=== PATIENT | female | born 1955 | race Caucasian/White ===

== ENCOUNTER 2022-09-03 08:51 | Outpatient (REF) | payer MEDICARE, BC, SELFPAY ==
[2022-09-03 09:19] LABS: MANUAL DIFF FLAG NO
[2022-09-03 09:46] LABS: Appearance Urine Cloudy; Color Urine Yellow; Glucose Urine UA Negative (Negative); Leukocyte Esterase Urine Moderate (2+) (Negative); Nitrite Urine Negative (Negative); UMIC TRIGGER UACC YES; Urine Blood Negative (Negative); Urine Ketones Negative (Negative); Urine Protein Negative (Neg-Trace)
[2022-09-03 09:47] LABS: Basophils Absolute Auto 0.1 X10*3/uL (0.0-0.2); Basophils Percent Auto 0.8 % (0-2); Eosinophils Absolute Auto 0.2 X10*3/uL (0.0-0.4); Eosinophils Percent Auto 2.8 % (0-4); Hematocrit 47.2 % (37.0-47.0); Hemoglobin 15.1 g/dl (12.0-16.0); Imm Gran Abs Auto 0.02 X10*3/uL (0.00-0.03); Imm Gran Pct Auto 0.2 % (0.0-0.4); Lymphocytes Absolute Auto 2.8 X10*3/uL (1.2-4.9); Lymphocytes Percent Auto 32.8 % (20-40); Mean Corpuscular Hemoglobin 27.1 pg (27.0-33.0); Mean Corpuscular Volume 84.7 fL (80.0-98.0); Mean Platelet Volume 11.9 fL (9.4-12.3); Monocytes Absolute Auto 0.6 X10*3/uL (0.1-1.2); Monocytes Percent Auto 6.5 % (2-11); Neutrophils Absolute Auto 4.9 x10*3/uL (2.0-8.3); Neutrophils Percent Auto 56.9 % (45-73); Platelet Count 233 X10*3/uL (160-400); Red Blood Count 5.57 X10*6/uL (4.20-5.50); Red Cell Distribution Width 14.1 % (11.0-16.0); White Blood Count 8.7 X10*3/uL (4.8-10.8)
[2022-09-03 09:51] LABS: Bacteria Urine None Seen (None Seen); Hyaline Casts Urine 0-2 /LPF (0-2); RBC Urine 0-2 /HPF (0-2); UACC Culture Trigger YES
[2022-09-03 10:08] LABS: Alanine Aminotransferase 25 U/L (0-31); Albumin Level 4.5 g/dL (3.5-5.0); Alkaline Phosphatase 105 U/L (39-117); Anion Gap 17 (12-20); Aspartate Amino Transferase 15 U/L (5-31); Bilirubin Total 0.5 mg/dL (0.0-1.0); Blood Urea Nitrogen 16 mg/dL (9-16); Calcium 9.6 mg/dL (8.4-10.2); Carbon Dioxide 26 mmol/L (22-29); Chloride 101 mmol/L (96-108); Estimated Glomerular Filt Rate > 60; Glucose Fasting 117 mg/dL (60-99); Potassium 4.7 mmol/L (3.3-5.1); Sodium 139 mmol/L (135-145); Total Protein 7.6 g/dL (6.5-8.0)
== END 2022-09-03 08:52 | disposition home or self-care (01) ==
LOC: HO.LAB 08:51
PROVIDERS: PCP Internal Medicine; Visit Provider Internal Medicine
DX: R10.9 Unspecified abdominal pain (principal)
CPT/HCPCS: 36415; 80053; 81001; 85025; 87086

== ENCOUNTER 2024-06-05 11:02 | Outpatient (AMB) | payer MEDICARE, BC, SELFPAY ==
[2024-06-05 11:13] VITALS: BP 168/100; PULSE 74; TEMP 36.9; O2SAT 97; BMI 33.7
--- NOTE | 2024-06-05 11:13 | MHC.OFFWIV ---
Intake Vital Signs 06/05/24 11:13 06/05/24 11:32 Height 4 ft 11 in Weight 167 lb BMI 33.7 BP 168/100 H 148/96 H Blood Pressure Location Rt brachial Lt brachial Position Sitting Sitting Pulse 74 Pulse Source Pulse Oximeter Temp 98.5 F Temp Source Oral Pulse Oximetry (%) 97 Oxygen Delivery Method Room Air Intake Visit Reasons: Rash/Infection on RT Leg Intake Note: pt c/o Rash on RT leg. ? infection Patient Tobacco Use Status: Current everyday Tobacco user Allergies No Known Allergies Allergy (Verified 06/05/24 11:13) Do you need a note to return to daycare/school/sports/work: No HPI HPI Comments History of Present Illness Details This is a 68-year-old female who presents to the walk-in clinic complaining of rash on her right leg. Patient states she believes she was bitten by some sort of insect about 3 weeks ago. She states it was just a small area where the bite was there was some mild purplish discoloration. She states she has been utilizing Benadryl cream as well as topical antibiotic cream and cleaning the area with hydrogen peroxide. She states that the rash started to spread slightly and has been pruritic. She denies any fever/chills. She denies any arthralgias/myalgias. She otherwise feels well. Patient does report that she is outside quite often and has a woodsy backyard. 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 Cognitive needs: No Hearing needs: No Vision needs: Yes (glasses) Review of Systems Const All systems reviewed & are unremarkable except as noted in HPI and below Reports no additional complaints Eyes Reports no additional complaints ENT Reports no additional complaints Card Reports no additional complaints Resp Reports no additional complaints GI Reports no additional complaints Reports no additional complaints Musc Reports no additional complaints Skin/Breast Reports system reviewed and no additional complaints, except as documented Neuro Reports no additional complaints Psych Reports no additional complaints Endo Reports no additional complaints Rock/Lymph Reports no additional complaints Aller/Immun Reports no additional complaints Physical Exam Vital Signs: Last Vital Signs Temp 98.5 F 06/05/24 11:13 Pulse 74 06/05/24 11:13 BP 168/100 H 06/05/24 11:13 Pulse Ox 97 06/05/24 11:13 Oxygen Delivery Method Room Air 06/05/24 11:13 BMI result Body Mass Index 33.7 Const Other: Vital signs reviewed. Constitutional: Non-toxic appearing. No acute distress. Well-developed and well-nourished. HEENT: Normocephalic and atraumatic. Skin: There is a maculopapular rash to the anterior right dudley with a central scab. There is no surrounding erythema or cellulitic changes. There is no purulent drainage. There is no lymphangitic streaking. Neck: Full and painless range of motion. No cervical lymphadenopathy. Cardio: Regular rate. Pulmonary: No respiratory distress. No accessory muscle usage. Gastrointestinal: Soft, nontender, and nondistended in all 4 quadrants. Musculoskeletal: Normal range of motion in joints throughout the body. No deformity or other signs of injury. Neuro: Alert and oriented x4. Cranial nerves 2-12 grossly intact. No focal deficits appreciated. Psych: Normal mood and affect. Assessment & Plan Assessment & Plan (1) Contact dermatitis: Code(s): L25.9 - Unspecified contact dermatitis, unspecified cause Qualifiers: Contact dermatitis type: irritant Contact dermatitis trigger: unspecified trigger Qualified Code(s): L24.9 - Irritant contact dermatitis, unspecified cause Plan: 68-year-old female presented to the walk-in clinic complaining of a pruritic rash in the right anterior dudley swelling and possible insect bite. History and physical appears most consistent with an irritant contact dermatitis, no evidence of cellulitis or abscess or erythema migraines. Patient sent home with triamcinolone cream twice daily. She was advised to continue with oral antihistamines, which will help with the itching. She was advised to follow-up here or proceed to the emergency room if she were to develop persistent/worsening symptoms, fever/chills, or purulent drainage. Patient verbalized understanding is in agreement with the plan. Medications: New triamcinolone acetonide 0.5% 1 appl topical BID 15 grams 0RF Coding Level of Care Code Est Pt Level 3 (23595) Diagnoses Irritant contact dermatitis, unspecified trigger L24.9 Contact dermatitis type: irritant Contact dermatitis trigger: unspecified trigger
[2024-06-05 11:32] VITALS: BP 148/96
== END 2024-06-05 12:13 | disposition home or self-care (01) ==
PROVIDERS: PCP Internal Medicine; Visit Provider Physician Assistant Medical
DX: L24.9 Irritant contact dermatitis, unspecified cause (principal)
CPT/HCPCS: 99213

== ENCOUNTER 2024-07-24 12:52 | Outpatient (AMB) | payer MEDICARE, BC, SELFPAY ==
--- NOTE | 2024-07-24 12:55 | MHC.OFFWIV ---
Intake Vital Signs 07/24/24 12:57 Height 4 ft 11 in Weight 169 lb BMI 34.1 BP 138/80 Blood Pressure Location Lt brachial Position Sitting Pulse 106 H Pulse Source Pulse Oximeter Pulse Oximetry (%) 96 Oxygen Delivery Method Room Air Intake Visit Reasons: EP Rash on leg Intake Note: Patient here for rash on right leg, she was prescribed an ointment which helped clear it up but ran out of cream. Patient Tobacco Use Status: Current everyday Tobacco user Allergies No Known Allergies Allergy (Verified 07/24/24 12:58) Do you need a note to return to daycare/school/sports/work: No HPI HPI Comments History of Present Illness Details This is a 68-year-old female who presented to the walk-in clinic complaining of a persistent rash to her right lower extremity. She was evaluated at the walk-in clinic on 06/05/2024 and she was diagnosed with contact/irritant dermatitis and given triamcinolone cream. Patient states it was topical steroid cream was working very well in the rash significantly improved to an extremely small area; however, she ran out of the cream and the rash started to spread again. She states that she has been rubbing the area with hydrogen peroxide. Patient otherwise is feeling well without active complaints. 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 Cognitive needs: No Hearing needs: No Vision needs: Yes (glasses) Review of Systems Const All systems reviewed & are unremarkable except as noted in HPI and below Reports no additional complaints Eyes Reports no additional complaints ENT Reports no additional complaints Card Reports no additional complaints Resp Reports no additional complaints GI Reports no additional complaints Reports no additional complaints Musc Reports no additional complaints Skin/Breast Reports system reviewed and no additional complaints, except as documented Neuro Reports no additional complaints Psych Reports no additional complaints Endo Reports no additional complaints Rock/Lymph Reports no additional complaints Aller/Immun Reports no additional complaints Physical Exam Vital Signs: Last Vital Signs Pulse 106 H 07/24/24 12:57 BP 138/80 07/24/24 12:57 Pulse Ox 96 07/24/24 12:57 Oxygen Delivery Method Room Air 07/24/24 12:57 BMI result Body Mass Index 34.1 Const Other: Vital signs reviewed. Constitutional: Non-toxic appearing. No acute distress. Well-developed and well-nourished. HEENT: Normocephalic and atraumatic. Tympanic membranes without erythema, edema, or bulging bilaterally. External auditory canals without erythema or edema bilaterally. Moist mucous membranes. No pharyngeal erythema or exudates. Skin: Warm and dry. There is a maculopapular rash to the anterior right dudley, which is significantly improved from 06/05/2024. There is no surrounding erythema or cellulitic changes. There is no purulent drainage. There is no lymphangitic streaking. Neck: Full and painless range of motion. No cervical lymphadenopathy. Cardio: Regular rate. No lower extremity edema. No JVD. Pulmonary: No respiratory distress. No accessory muscle usage. Musculoskeletal: Normal range of motion in joints throughout the body. No deformity or other signs of injury. Neuro: Alert and oriented x4. Cranial nerves 2-12 grossly intact. No focal deficits appreciated. Psych: Normal mood and affect. Assessment & Plan Assessment & Plan (1) Contact dermatitis: Code(s): L25.9 - Unspecified contact dermatitis, unspecified cause Qualifiers: Contact dermatitis type: irritant Contact dermatitis trigger: unspecified trigger Qualified Code(s): L24.9 - Irritant contact dermatitis, unspecified cause Plan: This is a 68-year-old female who presented to the walk-in clinic complaining of a persistent rash to the right lower extremity. The rash has almost completely resolved; however, she ran out of her steroid cream and started rubbing the area with hydrogen peroxide in the rash started to spread again. Patient is requesting a refill of the triamcinolone cream, which was provided to her. I also recommended she avoid rubbing the area as this is quite abrasive and can irritate the area further. Patient extremely appreciative of the help. Medications: Refilled triamcinolone acetonide 0.5% 1 appl topical BID 30 grams 0RF Coding Level of Care Code Est Pt Level 3 (17939) Diagnoses Irritant contact dermatitis, unspecified trigger L24.9 Contact dermatitis type: irritant Contact dermatitis trigger: unspecified trigger
[2024-07-24 12:57] VITALS: BP 138/80; PULSE 106; O2SAT 96; BMI 34.1
== END 2024-07-24 13:42 | disposition home or self-care (01) ==
PROVIDERS: PCP Internal Medicine; Visit Provider Physician Assistant Medical
DX: L24.9 Irritant contact dermatitis, unspecified cause (principal)

== ENCOUNTER → 2024-07-24 12:52 | Outpatient (BNVA) | payer MEDICARE, BC, SELFPAY | PROVIDERS: PCP Internal Medicine | DX: L24.9 Irritant contact dermatitis, unspecified cause (principal) | CPT/HCPCS: 99212 ==

== ENCOUNTER 2024-09-29 13:21 | Outpatient (AMB) | payer MEDICARE, BC, SELFPAY ==
[2024-09-29 13:26] VITALS: BP 182/102; PULSE 92; O2SAT 96; BMI 32.6
--- NOTE | 2024-09-29 13:26 | A.OFFPC_ITS ---
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 Accompanied by: Self / Same As Patient Allergies No Known Allergies Allergy (Verified 09/29/24 14:30) Medication List - Last Reconciled 09/29/24 by Agapito Huffman MD lisinopril 10 mg PO DAILY meloxicam 15 mg PO DAILY triamcinolone acetonide 0.5% 1 appl topical BID Tobacco use date assessed: 09/29/24 Fall risk assessment: No Falls in past year Last assessed Fall Risk: 09/29/24 Dental Screening Dental Screen Date: 09/29/24 Did you have a dental visit in the last 12 months?: Yes Did you have a dental problem in the last 6 months where you did not have access to dental care?: No Was dental information given to patient?: Patient has dentist HPI Stomach and back pain HPI Details 69-year-old female presents to the offic e to discuss her acute stomach and back pain. Symptoms present for the past 2 weeks. Mostly on the right upper quadrant and lower back. Does not recall any fall or injury. No relation to walking or exercise. No relation to food. Patient reports no change in bowel habits. Patient does not come to a physician unless needed. She has not been doing any of her screening test that have been ordered. Continues to work and is able to do her activities of daily living. 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 1. Little interest or pleasure in doing things: not at all 2. Feeling down, depressed, or hopeless: not at all 3. Trouble falling or staying asleep, or sleeping too much: not at all 4. Feeling tired or having little energy: not at all 5. Poor appetite or overeating: not at all 6. Feeling bad about yourself - or that you are a failure or have let yourself or your family down: not at all 7. Trouble concentrating on things, such as reading the newspaper or watching television: not at all 8. Moving or speaking so slowly that other people could have noticed. Or the opposite - being so fidgety or restless that you have been moving around a lot more than usual: not at all 9. Thoughts that you would be better off or of hurting yourself in some way: not at all Total score: 0 Depression Screening Interpretation: Negative Depression Screening Done: Yes 10328 - PHQ-9 Billing: Yes Source: Developed by Drs. Bernardo Waller, Bee Martinez, Mark Boyle and colleagues, with an educational varghese from [employer]. Thrive Questionnaire Date Thrive assessed: 09/29/24 I am a: Patient What is your living situation today?: I have a steady place to live Within the past 12 months, did the food you bought not last and you didn't have the money to get more?: Never true Within the past 12 months, did you worry whether your food would run out before you got money to buy more?: Never true Do you have trouble paying for medicines?: No Do you have trouble getting transportation to medical appointments?: No Do you have trouble paying your heating and electricity bill?: No Do you have trouble taking care of your child, family member or friend?: No Do you have trouble with day-to-day activities such as bathing, preparing meals, shopping, managing finances, etc.?: No Are you currently unemployed and looking for a job?: No Are you interested in more education?: No Please select the resources that you would like help with: None Currently or been in a relationship where the following occur: No concerns reported THRIVE Score: 0 AUDIT C Alcohol Use Questionnaire (AUDIT-C) 1. How often do you have a drink containing alcohol?: Never 3. How often do you have six or more drinks on one occasion?: Never Total Score: 0 YAJAIRA-7 AMB Questionnaire YAJAIRA-7 Date YAJAIRA - 7 assessed: 09/29/24 Feeling nervous, anxious, or on edge: 2 = More than half the days Not being able to stop or control worryin = Several days Worrying too much about different things: 2 = More than half the days Trouble relaxin = Not at all Being so restless that it is hard to sit still: 0 = Not at all Becoming easily annoyed or irritable: 0 = Not at all Feeling afraid as if something awful might happen: 1 = Several days Total YAJAIRA-7 score (0-4 normal; 5-9 mild; 10-14 moderate; 15-21 severe): 6 Source: Developed by Drs. Bernardo Waller, Bee Martinez, Mark Boyle and colleagues, with an educational varghese from [employer]. YAJAIRA-7 Assessment Billing YAJAIRA-7 Assessment Tool: YAJAIRA-7 Assessment 68454 Physical exam (Primary Care) Vital Signs: Last Vital Signs Pulse 92 09/29/24 13:26 BP 182/102 H 09/29/24 13:26 Pulse Ox 96 09/29/24 13:26 Oxygen Delivery Method Room Air 09/29/24 13:26 BMI result Body Mass Index 32.6 Tobacco/Smoking Status: Tobacco use Status Tobacco use date assessed 09/29/24 09/29/24 13:44 Patient Tobacco Use Status Current everyday Tobacco 09/29/24 13:26 Tobacco use type Cigarette 09/29/24 13:26 e-Cigarette/Vaping Use Never Used 09/29/24 13:26 PHQ-9: PHQ-9 Score PHQ-9: Total score 0 09/29/24 13:49 Depression Screening Interpretation: Negative Thrive Assessment: Date of Thrive Assessment Date Thrive assessed 09/29/24 09/29/24 13:44 Currently or been in a relationship where the following occur: No concerns reported Const General: cooperative and healthy appearing Nutritional Appearance: well nourished Orientation/consciousness: patient oriented x3 Limitations: no limitations HENMT Head: Yes normal to inspection Eyes General: appearance normal, both eyes and all related structures Neck Neck: Yes normal visual inspection Chest Chest palpation & inspection: normal palpation of entire chest wall Resp Effort & Inspection: normal respiratory effort Neuro General: patient oriented x3 Office Procedures Flu Questionnaire Does the patient have a severe egg allergy?: No Does the patient have severe life threatening allergies?: No Does the patient have a fever or illness today?: No Has the patient ever had Guillain-[place] Syndrome?: No Has the patient ever had any past reaction to a flu shot?: No Immunizations Fluarix Triv [id number] (PF) 45 mcg (15 mcg x 3)/0.5 mL IM syringe Performing Provider: Agapito Huffman MD [facility] Administered by: CORNELL Metcalf on 09/29/24 13:49 Dose Route Admin Location Dispensed Lot Number Expiration Date NDC Development Coordinator 0.5 mL IM Right Deltoid 0.5 mL [id number] 04/26/25 [id number] Room 21 Media VIS Given Date VIS Provided VIS Publication Date 09/29/24 Single Vaccine 21 Eligibility Eligibility Date Funding Source Not [facility] Eligible 09/29/24 Private Coding Level of Care Code Est Pt Level 4 (60436) Complex EM visit Add On G2211 Diagnoses Abdominal pain R10.9 Essential hypertension I10 Additional Codes YAJAIRA-7 Assessment Billing - YAJAIRA-7 Assessment Tool: YAJAIRA-7 Assessment 33647 ([id number]) PHQ-9 - 61615 - PHQ-9 Billing: Yes ([id number]) Assessment & Plan Assessment & Plan (1) Abdominal pain: Code(s): R10.9 - Unspecified abdominal pain Category: Medical Plan: Etiology of the pain is unclear. Blood work has been ordered stat. Physical exam is unremarkable. Anti-inflammatory has been started. Patient has a follow-up appointment for next week. (2) Essential hypertension: Code(s): I10 - Essential (primary) hypertension Category: Medical Plan: Patient has persistently elevated blood pressure. Lisinopril 10 mg per day has been ordered. Orders: Orders Complete Blood Count no Diff Today R10.9 - Unspecified abdominal pain Liver Panel Today R10.9 - Unspecified abdominal pain Thyroid Stimulating Hormone Today R10.9 - Unspecified abdominal pain Erythrocyte Sedimentation Rate Today R10.9 - Unspecified abdominal pain Influenza [id number] Immunization Today Z23 - Encounter for immunization Basic Metabolic Panel Today R10.9 - Unspecified abdominal pain Lipid Panel Today R10.9 - Unspecified abdominal pain UA and rflx microscopic Today R10.9 - Unspecified abdominal pain Medications: New lisinopril 10 mg PO DAILY 90 tabs 1RF meloxicam 15 mg PO DAILY 14 tabs 0RF
== END 2024-09-29 14:26 | disposition home or self-care (01) ==
PROVIDERS: PCP Internal Medicine; Visit Provider Internal Medicine
DX: R10.9 Unspecified abdominal pain (principal); I10 Essential (primary) hypertension; Z23 Encounter for immunization

== ENCOUNTER 2024-09-29 13:21 | Outpatient (REF) | payer MEDICARE, BC, SELFPAY ==
[2024-09-29 15:49] LABS: Hematocrit 46.8 % (37.0-47.0); Hemoglobin 15.5 g/dl (12.0-16.0); Mean Corpuscular HGB Conc 33.1 g/dl (31.0-35.0); Mean Corpuscular Hemoglobin 28.3 pg (27.0-33.0); Mean Corpuscular Volume 85.6 fL (80.0-98.0); Mean Platelet Volume 11.4 fL (9.4-12.3); Platelet Count 247 X10*3/uL (160-400); Red Blood Count 5.47 X10*6/uL (4.20-5.50); Red Cell Distribution Width 14.6 % (11.0-16.0)
[2024-09-29 16:26] LABS: Appearance Urine Clear; Color Urine Yellow; Glucose Urine UA Negative (Negative); Leukocyte Esterase Urine Negative (Negative); Nitrite Urine Negative (Negative); PH 6.5 (5.0-9.0); Urine Blood Negative (Negative); Urine Ketones Negative (Negative); Urine Protein Trace mg/dL (Neg-Trace)
[2024-09-29 17:22] LABS: Erythrocyte Sedimentation Rate 6 MM/HR (0-20)
[2024-09-29 18:12] LABS: Alanine Aminotransferase 29 U/L (0-31); Albumin Level 4.5 g/dL (3.5-5.0); Alkaline Phosphatase 84 U/L (39-117); Anion Gap 14 (12-20); Aspartate Amino Transferase 23 U/L (5-31); Bilirubin Direct 0.1 mg/dL (0.0-0.5); Bilirubin Total 0.5 mg/dL (0.0-1.0); Blood Urea Nitrogen 14 mg/dL (9-16); Calcium 9.8 mg/dL (8.4-10.2); Carbon Dioxide 28 mmol/L (22-29); Chloride 101 mmol/L (96-108); Cholesterol 208 mg/dL (<200); Estimated Glomerular Filt Rate > 60; Glucose Random 113 mg/dL (60-115); HDL Cholesterol 49 mg/dL (>40); LDL Cholesterol Calculated 121 mg/dL (<100); Potassium 3.8 mmol/L (3.3-5.1); Sodium 139 mmol/L (135-145); Total Protein 7.8 g/dL (6.5-8.0); Triglycerides 191 mg/dL (<150)
[2024-09-29 19:00] LABS: Thyroid Stimulating Hormone 1.79 uIU/mL (0.32-4.0)
== END 2024-09-29 13:22 | disposition home or self-care (01) ==
LOC: HO.LAB 13:21
PROVIDERS: PCP Internal Medicine; Visit Provider Internal Medicine
DX: R10.9 Unspecified abdominal pain (principal); I10 Essential (primary) hypertension; Z23 Encounter for immunization
CPT/HCPCS: 36415; 80048; 80061; 80076; 81003; 84443; 85027; 85652; 90471; 90656; 96127; 99212

== ENCOUNTER 2024-10-12 09:17 | Outpatient (AMB) | payer MEDICARE, BC, SELFPAY ==
[2024-10-12 09:46] VITALS: BP 128/78; PULSE 78; O2SAT 95; BMI 33.2
--- NOTE | 2024-10-12 09:46 | A.OFFPC_ITS ---
Vital Signs 10/12/24 09:46 Height 4 ft 11 in Weight 164 lb 4 oz BMI 33.2 BP 128/78 Blood Pressure Location Lt brachial Position Sitting Pulse 78 Pulse Source Pulse Oximeter Pulse Oximetry (%) 95 Oxygen Delivery Method Room Air Intake Visit Reasons: ONE WEEK F/U Intake Note: Patient is here to follow up on HTN. 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 Required: No Advertising Display Rotator: Not Required per policy Accompanied by: Self / Same As Patient Allergies No Known Allergies Allergy (Verified 10/12/24 09:46) Tobacco use date assessed: 10/12/24 Dental Screening Dental Screen Date: 09/29/24 [facility] Medical History (Updated 10/12/24 @ 10:21 by Agapito Huffman MD) Systolic murmur of aorta Essential hypertension Surgical History History of cholecystectomy History of partial hysterectomy Social History Housing: House Alcohol intake: never Patient Tobacco Use Status: Current everyday Tobacco user Tobacco use type: Cigarette Cigarettes Per Day: 7 e-Cigarette/Vaping Use: Never Used Second Hand Smoke Exposure: Yes service: No Current occupational status: employed 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 Bernardo Waller, Bee Martinez, Mark Boyle and colleagues, with an educational varghese from [employer]. Physical exam (Primary Care) Vital Signs: Last Vital Signs Pulse 78 10/12/24 09:46 BP 128/78 10/12/24 09:46 Pulse Ox 95 10/12/24 09:46 Oxygen Delivery Method Room Air 10/12/24 09:46 BMI result Body Mass Index 33.2 Tobacco/Smoking Status: Tobacco use Status Tobacco use date assessed 10/12/24 10/12/24 09:50 Patient Tobacco Use Status Current everyday Tobacco 10/12/24 09:50 Tobacco use type Cigarette 10/12/24 09:50 e-Cigarette/Vaping Use Never Used 10/12/24 09:50 Thrive Assessment: Date of Thrive Assessment Date Thrive assessed 09/29/24 10/12/24 09:50 Coding Level of Care Code Est Pt Level 4 (39759) Complex EM visit Add On G2211 Diagnoses Essential hypertension I10 Systolic murmur of aorta I35.8 Hypercholesterolemia E78.00 Abdominal pain R10.9 Assessment & Plan Assessment & Plan (1) Essential hypertension: Code(s): I10 - Essential (primary) hypertension Category: Medical Plan: BP is in range. Continue lisinopril at same dosage. (2) Systolic murmur of aorta: Code(s): I35.8 - Other nonrheumatic aortic valve disorders Category: Medical Plan: Most likely aortic stenosis. Patient does not want any workup at the movement. (3) Hypercholesterolemia: Code(s): E78.00 - Pure hypercholesterolemia, unspecified Category: Medical (4) Abdominal pain: Code(s): R10.9 - Unspecified abdominal pain Category: Medical Plan History of Present Illness The patient is a 69-year-old female presenting with concerns related to her ongoing hypertension management and episodes of abdominal pain. Previously, her blood pressure was elevated, and she commenced antihypertensive medication resulting in good control currently. She initially presented with unexplained abdominal pain on one side, which had led to blood work and a prescription of meloxicam, with the latter providing significant symptom relief. The abdominal pain has since resolved. The patient also reports a history of itchy rash described as small bumps that increase in itchiness upon scratching and appear to be exacerbated by stress. She has experienced improvement in symptoms using a non-prescribed topical treatment from her ?s supply, acknowledging it was not her prescription. 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 - Cardiovascular: Denies chest pain. Reports awareness of a heart murmur. - Gastrointestinal: Denies changes in bowel habits, reflux, or gastrointestinal discomfort at present. - General: Denies sleeping issues. Reports stress management challenges. Physical Exam General: Cooperative and healthy appearing Nutritional Appearance: Well nourished Orientation/consciousness: Patient oriented x3 Limitations: No limitations Head: Normal to inspection Heart: S1 S2. Soft ejection murmur best heard in the aortic area radiating into the carotids. General: Appearance normal, both eyes and all related structures Neck: Normal visual inspection Chest: Normal palpation of entire chest wall Respiratory: Normal respiratory effort Neurology: Patient oriented x3 Results - Labs: Blood work previously completed indicated no abnormalities concerning liver enzymes. Plan - Continue current antihypertensive regimen given effective blood pressure control. - Prescribe a topical corticosteroid cream for the itchy rash as a safer alternative to the previously used non-prescribed medication. - Encourage the patient to complete a Cologuard test and schedule a mammogram to stay on top of preventive screenings. - Monitor heart murmur; no immediate action required. Patient was informed and verbally consented to the use of an ambient scribe for clinic note documentation during this visit. Discussion Notes During this visit, I discussed the importance of continued adherence to the antihypertensive regimen, as the patient demonstrated effective blood pressure control. I addressed her concerns regarding the itchy rash and will prescribe a hydrocortisone-based cream as a remedy. The significance of completing preventive screenings, including Cologuard and mammogram, was emphasized, as early detection can lead to high cure rates for potential conditions. I reassured her about the nature of the soft systolic murmur and advised her to monitor for any recurrence of abdominal pain. Follow-up arrangements were made to continue monitoring and manage raised issues. Patient Instructions - Continue taking blood pressure medication as prescribed. - Use the prescribed hydrocortisone cream for the rash as directed. - Complete the Cologuard test and schedule a mammogram as instructed. - Monitor for any recurrence of abdominal pain or other concerning symptoms. - Contact the office if any new or worsening symptoms occur or if there are questions regarding health management. - Follow up in three months for a routine check-up and reassessment of health maintenance needs. Orders: Orders MM screening mammo BI Today Z12.31 - Encounter for screening mammogram for malignant neoplasm of breast Referrals Cologuard Test Z12.11 - Encounter for screening for malignant neoplasm of col on Medications: New hydrocortisone 2.5% 1 appl topical BID PRN 20 grams 0RF skin irritation
== END 2024-10-12 10:13 | disposition home or self-care (01) ==
PROVIDERS: PCP Internal Medicine; Visit Provider Internal Medicine
DX: I10 Essential (primary) hypertension (principal); I35.8 Other nonrheumatic aortic valve disorders; E78.00 Pure hypercholesterolemia, unspecified; R10.9 Unspecified abdominal pain

== ENCOUNTER → 2024-10-12 09:17 | Outpatient (BNVA) | payer MEDICARE, BC, SELFPAY | PROVIDERS: PCP Internal Medicine; Visit Provider Internal Medicine | DX: I10 Essential (primary) hypertension (principal); I35.8 Other nonrheumatic aortic valve disorders; E78.00 Pure hypercholesterolemia, unspecified; R10.9 Unspecified abdominal pain | CPT/HCPCS: 99212 ==

== ENCOUNTER 2024-11-10 14:53 | Outpatient (REF) | payer MEDICARE, BC, SELFPAY | END 2024-11-10 14:54 | disposition home or self-care (01) | LOC: HO.MAMMO 14:53 | PROVIDERS: PCP Internal Medicine; Visit Provider Internal Medicine | DX: Z12.31 Encounter for screening mammogram for malignant neoplasm of breast (principal) | CPT/HCPCS: 77063; 77067 ==

== ENCOUNTER → 2024-11-10 15:15 | Outpatient (BNV) | payer MEDICARE, BC, SELFPAY | PROVIDERS: PCP Internal Medicine; Visit Provider Internal Medicine | DX: Z12.31 Encounter for screening mammogram for malignant neoplasm of breast (principal) | CPT/HCPCS: 77063; 77067 ==

== ENCOUNTER 2025-02-04 13:15 | Outpatient (AMB) | payer MEDICARE, BC, SELFPAY ==
--- NOTE | 2025-02-04 13:29 | MHC.PC.OV ---
Vital Signs 02/04/25 13:31 Height 4 ft 11 in Weight 160 lb 4 oz BMI 32.4 BP 124/64 Blood Pressure Location Lt brachial Position Sitting Pulse 79 Pulse Source Pulse Oximeter Temp 97.3 F Temp Source Temporal Artery Scan Pulse Oximetry (%) 98 Oxygen Delivery Method Room Air Intake Visit Reasons: 3 month f/u Intake Note: Patient is here to follow up on HTN. Steam Pan Sponger Required: No Machine Stonecutter: Not Required per policy Accompanied by: Self / Same As Patient Allergies No Known Allergies Allergy (Verified 02/04/25 13:31) Tobacco use date assessed: 02/04/25 Fall risk assessment: No Falls in past year Last assessed Fall Risk: 02/04/25 Dental Screening Dental Screen Date: 02/04/25 Did you have a dental visit in the last 12 months?: Yes Did you have a dental problem in the last 6 months where you did not have access to dental care?: No Was dental information given to patient?: Patient has dentist [facility] Medical History (Updated 02/04/25 @ 13:58 by Agapito Huffman MD) Rash History of insertion of dental endosseous implant Encounter for colorectal cancer screening using Cologuard test (~11/06/24) Systolic murmur of aorta Essential hypertension Surgical History History of cholecystectomy History of partial hysterectomy Social History (Updated 02/04/25 @ 13:38 by VALENTINO Calderón) Housing: House Alcohol intake: never Patient Tobacco Use Status: Current everyday Tobacco user Tobacco use type: Cigarette Cigarette Packs Per Day: 0.5 Cigarettes Per Day: 10 e-Cigarette/Vaping Use: Never Used Second Hand Smoke Exposure: Yes service: No Current occupational status: employed 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 1. Little interest or pleasure in doing things: not at all 2. Feeling down, depressed, or hopeless: not at all 3. Trouble falling or staying asleep, or sleeping too much: not at all 4. Feeling tired or having little energy: not at all 5. Poor appetite or overeating: not at all 6. Feeling bad about yourself - or that you are a failure or have let yourself or your family down: not at all 7. Trouble concentrating on things, such as reading the newspaper or watching television: not at all 8. Moving or speaking so slowly that other people could have noticed. Or the opposite - being so fidgety or restless that you have been moving around a lot more than usual: not at all 9. Thoughts that you would be better off or of hurting yourself in some way: not at all Total score: 0 Depression Screening Interpretation: Negative Depression Screening Done: Yes Source: Developed by Drs. Bernardo Waller, Bee Martinez, Mark Boyle and colleagues, with an educational varghese from [employer]. Thrive Questionnaire Date Thrive assessed: 02/04/25 I am a: Patient What is your living situation today?: I have a steady place to live Within the past 12 months, did the food you bought not last and you didn't have the money to get more?: Never true Within the past 12 months, did you worry whether your food would run out before you got money to buy more?: Never true Do you have trouble paying for medicines?: No Do you have trouble getting transportation to medical appointments?: No Do you have trouble paying your heating and electricity bill?: No Do you have trouble taking care of your child, family member or friend?: No Do you have trouble with day-to-day activities such as bathing, preparing meals, shopping, managing finances, etc.?: No Are you currently unemployed and looking for a job?: No Are you interested in more education?: No Please select the resources that you would like help with: None Currently or been in a relationship where the following occur: No concerns reported THRIVE Score: 0 AUDIT C Alcohol Use Questionnaire (AUDIT-C) 2. How many drinks containing alcohol do you have on a typical day when you are drinking?: 1 or 2 3. How often do you have six or more drinks on one occasion?: Never Total Score: 0 YAJAIRA-7 AMB Questionnaire YAJAIRA-7 Date YAJAIRA - 7 assessed: 02/04/25 Feeling nervous, anxious, or on edge: 0 = Not at all Not being able to stop or control worryin = Not at all Worrying too much about different things: 0 = Not at all Trouble relaxin = Not at all Being so restless that it is hard to sit still: 0 = Not at all Becoming easily annoyed or irritable: 0 = Not at all Feeling afraid as if something awful might happen: 0 = Not at all Total YAJAIRA-7 score (0-4 normal; 5-9 mild; 10-14 moderate; 15-21 severe): 0 Source: Developed by Drs. Bernardo Waller, Bee Martinez, Mark Boyle and colleagues, with an educational varghese from [employer]. Physical exam (Primary Care) Vital Signs: Last Vital Signs Temp 97.3 F 02/04/25 13:31 Pulse 79 02/04/25 13:31 BP 124/64 02/04/25 13:31 Pulse Ox 98 02/04/25 13:31 Oxygen Delivery Method Room Air 02/04/25 13:31 BMI result Body Mass Index 32.4 Tobacco/Smoking Status: Tobacco use Status Tobacco use date assessed 02/04/25 02/04/25 13:39 Patient Tobacco Use Status Current everyday Tobacco 02/04/25 13:39 Tobacco use type Cigarette 02/04/25 13:39 e-Cigarette/Vaping Use Never Used 02/04/25 13:39 PHQ-9: PHQ-9 Score PHQ-9: Total score 0 02/04/25 13:39 Depression Screening Interpretation: Negative Thrive Assessment: Date of Thrive Assessment Date Thrive assessed 02/04/25 02/04/25 13:39 Currently or been in a relationship where the following occur: No concerns reported Coding Level of Care Code Est Pt Level 4 (71505) Complex EM visit Add On G2211 Diagnoses Systolic murmur of aorta I35.8 Essential hypertension I10 Rash R21 Positive colorectal cancer screening using Cologuard test R19.5 Assessment & Plan Assessment & Plan (1) Systolic murmur of aorta: Code(s): I35.8 - Other nonrheumatic aortic valve disorders Category: Medical Plan: Patient has now agreed for an echocardiogram. THe same has been ordered. (2) Essential hypertension: Code(s): I10 - Essential (primary) hypertension Category: Medical Plan: BP is in range. Continue current medication (3) Rash: Code(s): R21 - Rash and other nonspecific skin eruption Category: Medical Plan: Clotrimazole/steroid combination sent (4) Positive colorectal cancer screening using Cologuard test: Code(s): R19.5 - Other fecal abnormalities Plan: Very apprehensive of the colonoscopy. Xanax to be taken the day prior to the procedure and starting the prep. Plan History of Present Illness The patient is a 69-year-old female presenting with concerns related to colorectal cancer screening and a persistent rash. Her anxiety centers on the colonoscopy preparation, mainly the ingestion of the prep solution. A positive Cologuard test has increased the urgency of completing the colonoscopy, a procedure she acknowledges is necessary due to her age. The rash, consisting of red, itchy garcia, remains unresolved with the prescribed treatment and she has experienced informal relief by using an alternative topical medication. She is compliant with her hypertension management regimen and reports satisfactory blood pressure control. Her past diagnosis of aortic stenosis is reconsidered for further evaluation, notably an echocardiogram, despite previous reluctance. 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 - She describes her as having significant health issues, adding to her responsibilities. - She does not consume alcohol, soda, or water, with her beverage intake limited to coffee and milk. Review of Systems - Skin: Reports a rash characterized by red garcia with associated itchiness. - Cardiovascular: Denies any symptoms of heart failure, acknowledges a diagnosis of aortic stenosis but has not pursued further evaluation previously. - Gastrointestinal: Reports anxiety related to the preparation for a colonoscopy. Denies alcohol consumption. - Nervous System: Reports anxiety about colonoscopy preparation. Physical Exam General: Cooperative and healthy appearing Nutritional Appearance: Well nourished Orientation/consciousness: Patient oriented x3 Limitations: No limitations Head: Normal to inspection General: Appearance normal, both eyes and all related structures Neck: Normal visual inspection Chest: Normal palpation of entire chest wall Respiratory: Normal respiratory effort Neurology: Patient oriented x3 Results - Tests: Cologuard test positive for potential colorectal issues. Plan To alleviate anxiety about the colonoscopy preparation, a prescription for Xanax before the procedure will be provided. The current rash treatment will be revised with a new cream prescription, addressing the ineffectiveness of the previous topical agent. Essential hypertension management is stable with current medication, and an echocardiogram is proposed for further evaluation of her aortic stenosis. The patient should pursue follow-up with a induction furnace operator for the colonoscopy due to the positive Cologuard result and accompanying implications. Patient was informed and verbally consented to the use of an ambient scribe for clinic note documentation during this visit. Discussion Notes I explained the necessity of the colonoscopy following a positive Cologuard test, emphasizing the importance of completing the preparation. I discussed prescribing Xanax to help manage her anxiety concerning the preparation process. For her rash, I agreed to prescribe a different cream, considering her experience with the previous one. I reviewed her blood pressure control, verified the appropriateness of her current regimen, and suggested an echocardiogram to assess her aortic stenosis, outlining the non-invasive nature of the test. I addressed her concerns regarding hospital procedures and clarified the pathway for her upcoming colonoscopy. Patient Instructions - Take the prescribed Xanax prior to colonoscopy prep as instructed. - Use the new cream provided as directed for the rash. - Continue taking current blood pressure medication as prescribed. - Follow up with an echocardiogram as scheduled to evaluate aortic stenosis. - Arrange the appointment for the colonoscopy with the induction furnace operator. - For any new or worsening symptoms, seek medical attention. Orders: Orders CA echo transthoracic complete Today I35.8 - Other nonrheumatic aortic valve disorders Medications: New alprazolam (Xanax) 0.25 mg PO BEDTIME PRN 3 tabs 0RF anxiety clotrimazole-betamethasone 1-0.05 % 1 appl topical BID 45 grams 0RF Discontinued triamcinolone acetonide 0.5% Discontinued Reason: Doctor's Order 1 appl topical BID 30 grams 0RF hydrocortisone 2.5% Discontinued Reason: Doctor's Order 1 appl topical BID PRN 20 grams 0RF skin irritation
[2025-02-04 13:31] VITALS: BP 124/64; PULSE 79; TEMP 36.3; O2SAT 98; BMI 32.4
== END 2025-02-04 14:00 | disposition home or self-care (01) ==
LOC: HO.HMCH 13:16
PROVIDERS: PCP Internal Medicine; Visit Provider Internal Medicine
DX: I35.8 Other nonrheumatic aortic valve disorders (principal); I10 Essential (primary) hypertension; R21 Rash and other nonspecific skin eruption; R19.5 Other fecal abnormalities

== ENCOUNTER → 2025-02-04 13:15 | Outpatient (BNVA) | payer MEDICARE, BC, SELFPAY | PROVIDERS: PCP Internal Medicine; Visit Provider Internal Medicine | DX: I10 Essential (primary) hypertension (principal); I35.8 Other nonrheumatic aortic valve disorders; R21 Rash and other nonspecific skin eruption; R19.5 Other fecal abnormalities | CPT/HCPCS: 96127; 99212 ==

== ENCOUNTER → 2025-02-22 12:46 | Outpatient (REF) | payer MEDICARE, BC, SELFPAY ==
--- NOTE | 2025-02-22 12:49 | CA_ITS ---
Transthoracic Echocardiogram Patient (Last, First, Middle): Joanne Wright D Gender: Female Date of : 1955 Age: 69 Procedure Date: 02/22/2025 Procedure Type: Transthoracic Echocardiogram Location: OP Height: 149.86 cm Weight: 72.58 kg BSA: 1.68 m2 Heart Rate: bpm BP: 124 / 64 mmHg Plastic Boat Patcher: JEIMY Referring MD: Agapito Huffman MD Symptoms: I35.8 - Other nonrheumatic aortic valve disorders Study Quality: Adequate ECG Rhythm: Sinus Conclusions: - The left ventricular systolic function is normal. The calculated ejection fraction is 64% by biplane method. - Moderate focal hypertrophy of the basal septum. - No obvious valvular pathology seen on this study. - Small plaque is seen in the sino tubular ridge. Findings Left Ventricle Normal left ventricular cavity size. There is mildly increased left ventricular wall thickness. The left ventricular systolic function is normal. The calculated ejection fraction is 64% by biplane method. There is no evidence of regional wall motion abnormalities. Evidence suggests grade I (mild) diastolic dysfunction. Moderate focal hypertrophy of the basal septum. Right Ventricle Normal right ventricular cavity size and systolic function. Atria Both atria are normal in size. Aortic Valve There is a normal trileaflet aortic valve. There is no aortic valve stenosis. There is no aortic valve regurgitation. Mitral Valve The mitral valve appears normal. There is no mitral valve regurgitation. There is no mitral valve stenosis. Pulmonic Valve The pulmonic valve is likely normal. Tricuspid Valve There is trace tricuspid valve regurgitation. Tricuspid regurgitation envelope is inadequate for calculation of right ventricular systolic pressure. Great Vessels The asc aorta is normal in size. Small plaque is seen in the sino tubular ridge. Venous The inferior vena cava is normal in size and collapses greater than 50% with inspiration. Pericardium/Pleural There is no evidence of pericardial effusion. Prior Study Comparison No significant change compared to prior study dated: 10/15/2012. Recommendations, Care & Conclusions No obvious valvular pathology seen on this study. Measurements 2D Linear Measurements IVSd: 1.12 0.6-0.9/0.6-1.0 cm LVIDd: 3.92 3.9-5.3/4.2-5.9 cm LVIDd Index: 2.33 2.4-3.2/2.2-3.1 cm/m2 LVIDs: 2.47 2.0-3.6 cm LVPWd: 1.13 0.7-1.1 cm LA Diam: 3.20 2.7-3.8/3.0-4.0 cm LAIDs Index: 1.90 1.5-2.3 cm/m2 LV Mass: 181.63 67-162/88-224 g LV Mass Index: 108.12 43-95/49-115 g/m2 LVOT Diam: 2.00 3.0+(-)1.3 cm 2D Systolic Function EF 4C: 62.50 >55% EF 2C: 67.10 >55% EF BiP: 64.30 >55% Mitral Valve MV Pk E: 0.83 MV PK A: 1.24 MV Decel Time: 226.00 E/A: 0.70 E'Lateral: 5.11 E'Medial: 4.68 E/E' Med: 17.80 E/E' Lat: 16.30 PHT: 66.00 MVA PHT: 3.33 Decel Aurora: 3.68 Aortic Valve AoV Pk Dean: 1.94 AoV Mn Dean: 1.30 AoV VTI: 0.38 AoV Pk Grad: 15.00 Aov Mn Grad: 8.00 AYLIN Cont.VTI: 2.01 LVOT LVOT Pk Dean: 1.15 LVOT Mn Dean: 0.81 LVOT VTI: 0.24 LVOT Pk Grad: 5.00 LVOT Mn Grad: 3.00 LVOT Diam: 2.00 LVOT Area: 3.14 Diastolic Function MV Pk E: 0.83 MV Pk A: 1.24 E/A: 0.70 E'Medial: 4.68 E/E' Med: 17.80 E' Laterial: 5.11 E/E' Lat: 16.30 Right Ventricle TAPSE (mm): 24.80 TVS' Dean: 16.10 Tricuspid Valve RA Press: 3.00 Great Vessels Aorta Sinus of Valsalva: 2.96 2.0-3.[address] Ridge: 2.15 1.7-3.4 cm Ao Asc: 3.20 2.1-3.4 cm Updated in Other Vendor System with Status of Final Erwin Gomes MD electronically signed on 02/23/2025 8:59:41 AM with status of Final
== END ==
LOC: HO.CARD 12:46
PROVIDERS: PCP Internal Medicine; Visit Provider Internal Medicine
DX: I35.8 Other nonrheumatic aortic valve disorders (principal)
CPT/HCPCS: 93306

== ENCOUNTER → 2025-02-22 12:49 | Outpatient (BNV) | payer MEDICARE, BC, SELFPAY | PROVIDERS: PCP Internal Medicine; Visit Provider Internal Medicine | DX: I42.2 Other hypertrophic cardiomyopathy (principal); I70.0 Atherosclerosis of aorta | CPT/HCPCS: 93306 ==

== ENCOUNTER 2025-03-11 13:24 | Outpatient (AMB) | payer MEDICARE, BC, SELFPAY ==
--- NOTE | 2025-03-11 13:26 | MHC.OFFVIS ---
Vital Signs 03/11/25 13:41 Height 4 ft 11 in Weight 165 lb BMI 33.3 BP 148/88 H Blood Pressure Location Rt brachial Position Sitting Pulse 102 H Pulse Source Pulse Oximeter Pulse Oximetry (%) 96 Oxygen Delivery Method Room Air Intake Visit Reasons: colo screening pos cologuard Intake Note: NEW PATIENT for colo screening, initial? Cologuard + CC; Last Dipper Required: No Accompanied by: Self / Same As Patient Allergies No Known Allergies Allergy (Verified 03/11/25 13:34) HPI HPI colo screening pos cologuard: Details: 69-year-old female here for preprocedural meeting to discuss a screening colonoscopy in the context of a positive Cologuard test. She is referred by Agapito Huffman. PMX Hypertension High cholesterol Aortic murmur Osteoporosis Polymyalgia rheumatica History of thoracic and lumbar compression fractures Smoker * SURGICAL HISTORY Cholecystectomy UNILATERAL OOPHORECTOMY AND SALPINGECTOMY * ALLERGIES: NKDA * [employer] LABS: None recent TODAY'S VISIT She only drinks milk and coffee so she has been dreading a scope for this reason. It seems that her insurance covers Sutab, so she is willing to try with this. She drinks decaf coffee. This is her first colonoscopy. She denies any cardiac or respiratory problems. There are no prior problems with anesthesia and sedation. NO ID problems. THere is no FHX crc or polyps, She had a recent positive COloguard. [facility] Medical History (Updated 03/11/25 @ 13:50 by PENELOPE San) Gallstone pancreatitis Thoracic compression fracture Osteoporosis Polymyalgia rheumatica Rash History of insertion of dental endosseous implant Encounter for colorectal cancer screening using Cologuard test (~11/06/24) Systolic murmur of aorta Essential hypertension Surgical History (Updated 03/11/25 @ 14:07 by PENELOPE San) History of salpingectomy History of oophorectomy, unilateral History of cholecystectomy Social History Housing: House Alcohol intake: never Patient Tobacco Use Status: Current everyday Tobacco user Tobacco use type: Cigarette Cigarette Packs Per Day: 0.5 Cigarettes Per Day: 10 e-Cigarette/Vaping Use: Never Used Second Hand Smoke Exposure: Yes service: No Current occupational status: employed 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 Cognitive needs: No Hearing needs: No Vision needs: Yes (glasses) Review of Systems Const Denies fatigue, Denies fever(s), Denies night sweats, Denies poor appetite and Denies weight loss Eyes Details: glasses Reports requires corrective lenses ENT Reports Normal hearing present, Denies dental pain, Denies dysphagia, Denies hearing loss, Denies mouth pain, Denies odynophagia, Denies throat swelling, Denies tongue swelling and Reports other (Dentition adequate) GI Details: Denies abdominal pain, Denies melena, Denies bloating, Denies hematochezia, Denies constipation, Denies GI cramping, Denies dysphagia, Denies excessive flatus, Denies early satiety, Denies heartburn, Denies diarrhea, Denies nausea, Denies odynophagia, Denies vomiting and Denies hematemesis Skin/Breast Denies pruritus, Denies lesions, Denies rash and Denies jaundice Neuro Reports Normal hearing present and Denies Abnormal speech present Endo Denies fatigue Aller/Immun Denies throat swelling and Denies tongue swelling Physical Exam Vital Signs: Last Vital Signs Pulse 102 H 03/11/25 13:41 BP 148/88 H 03/11/25 13:41 Pulse Ox 96 03/11/25 13:41 Oxygen Delivery Method Room Air 03/11/25 13:41 BMI result Body Mass Index 33.3 Const General: cooperative, no acute distress, well developed and well groomed Nutritional Appearance: well nourished and overweight Orientation/consciousness: oriented to person, oriented to place and oriented to time Limitations: No language barrier HEENT Head: Yes normocephalic and Yes atraumatic Eyes General: appearance normal, both eyes and all related structures Pupils: Equal, round and reactive pupils present Neck Neck: Yes normal visual inspection and Yes no lymphadenopathy Thyroid: Thyroid normal Resp Effort & Inspection: normal respiratory effort and able to speak in complete sentences Auscultation: clear to auscultation bilaterally Cardio Rate: regular rate Rhythm: regular rhythm Heart sounds: Normal, physiologic split S2 sound present Peripheral pulses: radial pulses present and posterior tibial pulses present GI Inspection: No distended, Yes Abdominal panniculus present and Yes obesity Palpation (GI): Soft to palpation, nontender, no guarding, not rigid and No hepatosplenomegaly present Percussion: Yes normal to percussion Auscultation: normal bowel sounds Rectal Exam - Female: deferred Abdomen image: 1. surgical scars 2. Skin General skin exam: no rashes or lesions noted, turgor normal, skin not dry, no jaundice, No spider nevi and no striae Rashes: no rashes Nails: normal Neuro General: oriented to person, oriented to place and oriented to time Cranial nerves: Yes Equal, round and reactive pupils present and Yes Normal hearing present Speech: No Abnormal speech present Extrem General: Yes normal to inspection, No clubbing, No cyanosis and No edema Psych Appearance: grossly normal and well kempt Mental Status: mental status grossly normal Speech and movement: Normal speech and movement present Affect: Anxious affect present Attitude: cooperative Thought process: Normal thought process present and not confabulating Thought content: Normal thought content present Insight: Fair insight present (Psych) Judgement: Fair judgement present (Psych) Assessment & Plan Assessment & Plan (1) Positive colorectal cancer screening using Cologuard test: Code(s): R19.5 - Other fecal abnormalities Category: Medical (2) Pre-op examination: Code(s): Z01.818 - Encounter for other preprocedural examination Category: Medical Plan She only drinks milk and coffee so she has been dreading a scope for this reason. It seems that her insurance covers Sutab, so she is willing to try with this. She drinks decaf coffee. This is her first colonoscopy. She denies any cardiac or respiratory problems. There are no prior problems with anesthesia and sedation. NO ID problems. THere is no FHX crc or polyps, She had a recent positive COloguard. Orders: Orders Complete Blood Count Auto Diff Today R19.5 - Other fecal abnormalities, Z01.818 - Encounter for other preprocedural examination Colonoscopy - GI Use Only Today R19.5 - Other fecal abnormalities, Z01.818 - Encounter for other preprocedural examination Comprehensive Met. Panel Today R19.5 - Other fecal abnormalities, Z01.818 - Encounter for other preprocedural examination Medications: New sod sulf-pot chloride-mag sulf 1.479-0.188- 0.225 gram (Sutab) PO PER PKG DIR for colonoscopy prep, please disreguard SUprep rx 24 tabs 0RF Discontinued alprazolam (Xanax) Discontinued Reason: Doctor's Order 0.25 mg PO BEDTIME PRN 3 tabs 0RF anxiety Coding Level of Care Code New Pt Level 3 (95115) Diagnoses Positive colorectal cancer screening using Cologuard test R19.5 Pre-op examination Z01.818
[2025-03-11 13:41] VITALS: BP 148/88; PULSE 102; O2SAT 96; BMI 33.3
== END 2025-03-11 14:14 | disposition home or self-care (01) ==
LOC: HO.HGI 13:25
PROVIDERS: PCP Internal Medicine; Visit Provider Nurse Practitioner
DX: R19.5 Other fecal abnormalities (principal); Z12.11 Encounter for screening for malignant neoplasm of colon; Z01.818 Encounter for other preprocedural examination
CPT/HCPCS: 99203

== ENCOUNTER → 2025-03-11 13:24 | Outpatient (BNVA) | payer MEDICARE, BC, SELFPAY | PROVIDERS: PCP Internal Medicine; Visit Provider Nurse Practitioner | DX: Z01.818 Encounter for other preprocedural examination (principal); R19.5 Other fecal abnormalities | CPT/HCPCS: 99202 ==

== ENCOUNTER 2025-08-12 13:51 | Outpatient (AMB) | payer MEDICARE, BC, SELFPAY ==
--- NOTE | 2025-08-12 14:00 | A.OFFPC_ITS ---
Vital Signs 08/12/25 14:02 Height 4 ft 11 in Weight 163 lb 2 oz BMI 32.9 BP 132/88 Blood Pressure Location Lt brachial Position Sitting Pulse 89 Pulse Source Pulse Oximeter Temp 96.8 F Temp Source Temporal Artery Scan Pulse Oximetry (%) 96 Oxygen Delivery Method Room Air Intake Visit Reasons: 6mth f/u Intake Note: Patient is here to follow up on HTN, Hypercholesterolemia. 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 Accompanied by: Self / Same As Patient Allergies No Known Allergies Allergy (Verified 08/12/25 14:02) Tobacco use date assessed: 08/12/25 Fall risk assessment: No Falls in past year Last assessed Fall Risk: 08/12/25 Dental Screening Dental Screen Date: 02/04/25 [facility] [place] Medical History (Updated 03/11/25 @ 13:50 by PENELOPE San) Gallstone pancreatitis Thoracic compression fracture Osteoporosis Polymyalgia rheumatica Rash History of insertion of dental endosseous implant Encounter for colorectal cancer screening using Cologuard test (~11/06/24) Systolic murmur of aorta Essential hypertension Surgical History History of salpingectomy History of oophorectomy, unilateral History of cholecystectomy Social History Housing: House Alcohol intake: never Patient Tobacco Use Status: Current everyday Tobacco user Tobacco use type: Cigarette Cigarette Packs Per Day: 0.5 Cigarettes Per Day: 10 e-Cigarette/Vaping Use: Never Used Second Hand Smoke Exposure: Yes service: No Current occupational status: employed 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 1. Little interest or pleasure in doing things: not at all 2. Feeling down, depressed, or hopeless: not at all 3. Trouble falling or staying asleep, or sleeping too much: not at all 4. Feeling tired or having little energy: not at all 5. Poor appetite or overeating: not at all 6. Feeling bad about yourself - or that you are a failure or have let yourself or your family down: not at all 7. Trouble concentrating on things, such as reading the newspaper or watching television: not at all 8. Moving or speaking so slowly that other people could have noticed. Or the opposite - being so fidgety or restless that you have been moving around a lot more than usual: not at all 9. Thoughts that you would be better off or of hurting yourself in some way: not at all Total score: 0 Depression Screening Interpretation: Negative Depression Screening Done: Yes Source: Developed by Drs. Bernardo Waller, Bee Martinez, Mark Boyle and colleagues, with an educational varghese from [employer]. Thrive Questionnaire Date Thrive assessed: 02/04/25 I am a: Patient What is your living situation today?: I have a steady place to live Within the past 12 months, did the food you bought not last and you didn't have the money to get more?: Never true Within the past 12 months, did you worry whether your food would run out before you got money to buy more?: Never true Do you have trouble paying for medicines?: No Do you have trouble getting transportation to medical appointments?: No Do you have trouble paying your heating and electricity bill?: No Do you have trouble taking care of your child, family member or friend?: No Do you have trouble with day-to-day activities such as bathing, preparing meals, shopping, managing finances, etc.?: No Are you currently unemployed and looking for a job?: No Are you interested in more education?: No Please select the resources that you would like help with: None Currently or been in a relationship where the following occur: No concerns reported THRIVE Score: 0 AUDIT C Alcohol Use Questionnaire (AUDIT-C) 1. How often do you have a drink containing alcohol?: Never Total Score: 0 YAJAIRA-7 AMB Questionnaire YAJAIRA-7 Date YAJAIRA - 7 assessed: 02/04/25 Feeling nervous, anxious, or on edge: 0 = Not at all Not being able to stop or control worryin = Not at all Worrying too much about different things: 0 = Not at all Trouble relaxin = Not at all Being so restless that it is hard to sit still: 0 = Not at all Becoming easily annoyed or irritable: 0 = Not at all Feeling afraid as if something awful might happen: 0 = Not at all Total YAJAIRA-7 score (0-4 normal; 5-9 mild; 10-14 moderate; 15-21 severe): 0 Source: Developed by Drs. Bernardo Waller, Bee Martinez, Mark Boyle and colleagues, with an educational varghese from [employer]. Physical exam (Primary Care) Vital Signs: Last Vital Signs Temp 96.8 F 08/12/25 14:02 Pulse 89 08/12/25 14:02 BP 132/88 08/12/25 14:02 Pulse Ox 96 08/12/25 14:02 Oxygen Delivery Method Room Air 08/12/25 14:02 BMI result Body Mass Index 32.9 Tobacco/Smoking Status: Tobacco use Status Tobacco use date assessed 08/12/25 08/12/25 14:08 Patient Tobacco Use Status Current everyday Tobacco 08/12/25 14:08 Tobacco use type Cigarette 08/12/25 14:08 e-Cigarette/Vaping Use Never Used 08/12/25 14:08 PHQ-9: PHQ-9 Score PHQ-9: Total score 0 08/12/25 14:32 Depression Screening Interpretation: Negative Thrive Assessment: Date of Thrive Assessment Date Thrive assessed 02/04/25 08/12/25 14:08 Currently or been in a relationship where the following occur: No concerns reported Coding Level of Care Code Est Pt Level 4 (36442) Complex EM visit Add On G2211 Diagnoses Essential hypertension I10 Assessment & Plan Assessment & Plan (1) Essential hypertension: Code(s): I10 - Essential (primary) hypertension Category: Medical Plan: History of Present Illness - The patient is a 69-year-old female presenting for a follow-up on previous tests and preventative care measures. - She had a positive Cologuard test and colonoscopy is scheduled in a few months' - Occasional ear infections are noted, with no current symptoms reported. - The patient is on lisinopril for hypertension, with recent blood pressure at 132/88 mmHg. - An echocardiogram in January showed a trace heart murmur, not considered concerning. - She is active and reports easy bruising, attributing it to aging. - She agreed to receive a flu shot during the visit. Social History - The patient is gradually retiring after 35 years of working in the [email or web address] industry. - She remains active around the house, performing various tasks. Review of Systems - Ears: Reports occasional ear infections, denies current symptoms. - Cardiovascular: Denies chest pain, reports trace heart murmur. - General: Reports easy bruising, denies significant concern. Physical Exam General: Cooperative and healthy appearing Nutritional Appearance: Well nourished Orientation/consciousness: Patient oriented x3 Limitations: No limitations Head: Normal to inspection General: Appearance normal, both eyes and all related structures Neck: Normal visual inspection Chest: Normal palpation of entire chest wall Respiratory: COPD, very bad ormal respiratory effort Neurology: Patient oriented x3 Results - Echocardiogram: Trace heart murmur, not concerning. - Colonoscopy: Normal following positive Cologuard test. Plan - Administer influenza vaccination during the visit. - Continue monitoring blood pressure, consider adjusting lisinopril if hypertension persists. - No immediate intervention required for trace heart murmur, continue routine monitoring. - Follow up in six months for routine evaluation and monitoring. Discussion Notes I discussed with the patient the importance of receiving the influenza vaccination, which she agreed to. We reviewed her blood pressure management and the potential need to adjust her lisinopril dosage if hypertension persists. I reassured her about the trace heart murmur, explaining that it does not require immediate intervention but should be monitored routinely. We agreed on a follow- up visit in six months to reassess her condition and preventative care measures. Patient Instructions - Receive the flu shot today. - Monitor your blood pressure regularly and report any significant changes. - Follow up in six months for routine check-up. Orders: Orders Basic Metabolic Panel Today I10 - Essential (primary) hypertension Complete Blood Count no Diff Today I10 - Essential (primary) hypertension Lipid Panel Today I10 - Essential (primary) hypertension UA and rflx microscopic Today I10 - Essential (primary) hypertension Liver Panel Today I10 - Essential (primary) hypertension Thyroid Stimulating Hormone Today I10 - Essential (primary) hypertension Influenza [id number] Immunization Today Z23 - Encounter for immunization Medications: New Fluarix [id number] (PF) (flu vac ts (6mos up)-PF) 0.5 mL IM ONCE 0.5 mL 0RF NS Z23 - Encounter for immunization Refilled clotrimazole-betamethasone 1-0.05 % 1 appl topical BID 45 grams 0RF
[2025-08-12 14:02] VITALS: BP 132/88; PULSE 89; TEMP 36; O2SAT 96; BMI 32.9
== END 2025-08-12 14:50 | disposition home or self-care (01) ==
LOC: HO.HMCH 13:51
PROVIDERS: PCP Internal Medicine; Visit Provider Internal Medicine
DX: Z23 Encounter for immunization (principal); I10 Essential (primary) hypertension

== ENCOUNTER → 2025-08-12 13:51 | Outpatient (BNVA) | payer MEDICARE, BC, SELFPAY | PROVIDERS: PCP Internal Medicine; Visit Provider Internal Medicine | DX: I10 Essential (primary) hypertension (principal); Z23 Encounter for immunization | CPT/HCPCS: 90471; 90656; 96127; 99212 ==

== ENCOUNTER 2025-10-09 09:30 | Outpatient (AMB) | payer MEDICARE, BC, SELFPAY ==
[2025-10-09 09:36] VITALS: BP 154/90; PULSE 91; RESP 16; TEMP 36.7; O2SAT 98; BMI 33.1
--- NOTE | 2025-10-09 09:36 | AM.OFFWIN_ITS ---
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 Allergies No Known Allergies Allergy (Verified 10/09/25 09:37) Medication List - Last Reconciled 10/09/25 by Geovanny Miguel MD clotrimazole-betamethasone 1-0.05 % 1 appl topical BID lisinopril 10 mg PO DAILY HPI EP, sore throat HPI Details nasal congestion and sore throat with postnasal drip no fevers or chills no sick contacts PFSH Medical History (Updated 10/09/25 @ 10:00 by Geovanny Miguel MD) Gallstone pancreatitis Thoracic compression fracture Osteoporosis Polymyalgia rheumatica Rash History of insertion of dental endosseous implant Encounter for colorectal cancer screening using Cologuard test (~11/06/24) Systolic murmur of aorta Essential hypertension Surgical History History of salpingectomy History of oophorectomy, unilateral History of cholecystectomy Social History Housing: House Alcohol intake: never Patient Tobacco Use Status: Current everyday Tobacco user Tobacco use type: Cigarette Cigarette Packs Per Day: 0.5 Cigarettes Per Day: 10 e-Cigarette/Vaping Use: Never Used Second Hand Smoke Exposure: Yes service: No Current occupational status: employed 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 Head: Yes normocephalic and Yes atraumatic Eyes General: appearance normal, both eyes and all related structures Pupils: Equal, round and reactive pupils present EOM: EOMs intact bilaterally Resp Other: lungs CTA bilaterally Effort & Inspection: normal respiratory effort Neuro General: patient oriented x3 and gait normal Cranial nerves: Yes Equal, round and reactive pupils present Psych Affect: normal affect Results AMB Rapid Strep AMB Rapid Strep Negative Last Edit by Liza Diaz CMA on 10/09/25 09:45 Results Reviewed Results Reviewed: Laboratory Last Values Strep Scn [facility] Negative 10/09/25 09:31 Assessment & Plan Assessment & Plan (1) Nasal congestion: Code(s): R09.81 - Nasal congestion Plan: likely allergic or irritant as cause can use nasal steroid and daytime antihistamine can use nasal saline throughout the day humidified air at night no indication for an antibiotic at this time hydrate well and get plenty of rest Orders: Orders SARS-CoV2/FLU/RSV Today B34.9 - Viral infection, unspecified AMB Rapid Strep Screen Today Z13.9 - Encounter for screening, unspecified Medications: New fluticasone propionate 50 mcg/actuation (Flonase Allergy Relief) administer into each nostril 1 spray intranasal Q12H 16 grams 2RF 30 days cetirizine 10 mg PO DAILY PRN 30 tabs 0RF allergy symptoms 30 days Coding Level of Care Code Est Pt Level 3 (74785) Diagnoses Nasal congestion R09.81
== END 2025-10-09 10:01 | disposition home or self-care (01) ==
PROVIDERS: PCP Internal Medicine; Visit Provider Family Medicine
DX: R09.81 Nasal congestion (principal); Z13.9 Encounter for screening, unspecified

== ENCOUNTER → 2025-10-09 09:30 | Outpatient (BNVA) | payer MEDICARE, BC, SELFPAY | PROVIDERS: PCP Internal Medicine | DX: R09.81 Nasal congestion (principal); B34.9 Viral infection, unspecified | CPT/HCPCS: 87880; 99212 ==

== ENCOUNTER 2025-10-11 09:15 | Outpatient (REF) | payer MEDICARE, BC, SELFPAY ==
[2025-10-11 13:40] LABS: Appearance Urine Clear; Glucose Urine UA Negative (Negative); PH 7.0 (5.0-9.0); Specific Gravity - Urine 1.010 (1.005-1.025)
[2025-10-11 14:01] LABS: Hematocrit 47.1 % (37.0-47.0); Hemoglobin 15.4 g/dl (12.0-16.0); Mean Corpuscular HGB Conc 32.7 g/dl (31.0-35.0); Mean Corpuscular Hemoglobin 29.2 pg (27.0-33.0); Mean Corpuscular Volume 89.2 fL (80.0-98.0); NRBC Abs Auto 0.000 X10*3/uL (0.0-0.012); NRBC Pct Auto 0.0 /100WBC (0.0-0.2); Platelet Count 250 X10*3/uL (160-400); Red Blood Count 5.28 X10*6/uL (4.20-5.50); White Blood Count 9.8 X10*3/uL (4.8-10.8)
[2025-10-11 14:22] LABS: Alanine Aminotransferase 26 U/L (0-31); Albumin Level 4.6 g/dL (3.5-5.0); Alkaline Phosphatase 83 U/L (39-117); Anion Gap 11 (12-20); Aspartate Amino Transferase 32 U/L (5-31); Blood Urea Nitrogen 18 mg/dL (9-16); Calcium 9.9 mg/dL (8.4-10.2); Carbon Dioxide 31 mmol/L (22-29); Chloride 100 mmol/L (96-108); Cholesterol 221 mg/dL (<200); Estimated Glomerular Filt Rate > 60; HDL Cholesterol 43 mg/dL (>40); Potassium 4.3 mmol/L (3.3-5.1); Sodium 138 mmol/L (135-145); Total Protein 7.7 g/dL (6.5-8.0); Triglycerides 311 mg/dL (<150)
[2025-10-11 14:41] LABS: Thyroid Stimulating Hormone 2.13 uIU/mL (0.32-4.0)
== END 2025-10-11 09:16 | disposition home or self-care (01) ==
LOC: HO.HMGCLDS 09:15
PROVIDERS: PCP Internal Medicine; Visit Provider Internal Medicine
DX: I10 Essential (primary) hypertension (principal)
CPT/HCPCS: 36415; 80048; 80061; 80076; 81003; 84443; 85027

== ENCOUNTER 2025-10-18 13:19 | Outpatient (AMB) | payer MEDICARE, BC, SELFPAY ==
[2025-10-18 13:25] VITALS: BP 150/72; PULSE 88; TEMP 36.5; O2SAT 97; BMI 33.3
--- NOTE | 2025-10-18 13:25 | MHC.PC.OV ---
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 - She is currently taking lisinopril 10 mg daily for hypertension and reports compliance with this medication. - She does not monitor her blood pressure at home. - She reports no headaches or weakness associated with her blood pressure. - The patient also recently experienced brief episodes of dizziness when lying down and turning over at night, which she had not had before. - She notes that these symptoms seemed to have resolved since she started taking a daily allergy pill. - Regarding preventative care, she has a Cologuard kit but has not yet completed the test. Social History - Family: The patient reports her son and [id number] are expecting a child. - She helped raise two stepdaughters and has six grandchildren and two great-grandchildren. - Nutrition: Reports drinking a lot of milk. Results - Labs: Cholesterol is reported as being a little high, but no specific values were discussed. [facility] Medical History Gallstone pancreatitis Thoracic compression fracture Osteoporosis Polymyalgia rheumatica Rash History of insertion of dental endosseous implant Encounter for colorectal cancer screening using Cologuard test (~11/06/24) Systolic murmur of aorta Essential hypertension Surgical History History of salpingectomy History of oophorectomy, unilateral History of cholecystectomy Social History Housing: House Alcohol intake: never Patient Tobacco Use Status: Current everyday Tobacco user Tobacco use type: Cigarette Cigarette Packs Per Day: 0.5 Cigarettes Per Day: 10 e-Cigarette/Vaping Use: Never Used Second Hand Smoke Exposure: Yes service: No Current occupational status: employed 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 1. Little interest or pleasure in doing things: not at all 2. Feeling down, depressed, or hopeless: not at all 3. Trouble falling or staying asleep, or sleeping too much: not at all 4. Feeling tired or having little energy: not at all 5. Poor appetite or overeating: not at all 6. Feeling bad about yourself - or that you are a failure or have let yourself or your family down: not at all 7. Trouble concentrating on things, such as reading the newspaper or watching television: not at all 8. Moving or speaking so slowly that other people could have noticed. Or the opposite - being so fidgety or restless that you have been moving around a lot more than usual: not at all 9. Thoughts that you would be better off or of hurting yourself in some way: not at all Total score: 0 Depression Screening Interpretation: Negative Depression Screening Done: Yes Source: Developed by Drs. Bernardo Waller, Bee Martinez, Mark Boyle and colleagues, with an educational varghese from [employer]. Thrive Questionnaire Date Thrive assessed: 02/04/25 I am a: Patient What is your living situation today?: I have a steady place to live Within the past 12 months, did the food you bought not last and you didn't have the money to get more?: Never true Within the past 12 months, did you worry whether your food would run out before you got money to buy more?: Never true Do you have trouble paying for medicines?: No Do you have trouble getting transportation to medical appointments?: No Do you have trouble paying your heating and electricity bill?: No Do you have trouble taking care of your child, family member or friend?: No Do you have trouble with day-to-day activities such as bathing, preparing meals, shopping, managing finances, etc.?: No Are you currently unemployed and looking for a job?: No Are you interested in more education?: No Please select the resources that you would like help with: None Currently or been in a relationship where the following occur: No concerns reported THRIVE Score: 0 AUDIT C Alcohol Use Questionnaire (AUDIT-C) 1. How often do you have a drink containing alcohol?: Never 3. How often do you have six or more drinks on one occasion?: Never Total Score: 0 YAJAIRA-7 AMB Questionnaire YAJAIRA-7 Date YAJAIRA - 7 assessed: 02/04/25 Feeling nervous, anxious, or on edge: 0 = Not at all Not being able to stop or control worryin = Not at all Worrying too much about different things: 0 = Not at all Trouble relaxin = Not at all Being so restless that it is hard to sit still: 0 = Not at all Becoming easily annoyed or irritable: 0 = Not at all Feeling afraid as if something awful might happen: 0 = Not at all Total YAJAIRA-7 score (0-4 normal; 5-9 mild; 10-14 moderate; 15-21 severe): 0 Source: Developed by Drs. Bernardo Waller, Bee Martinez, Mark Boyle and colleagues, with an educational varghese from [employer]. Review of Systems Narrative Review of Systems - Constitutional: Denies feeling stressed. - Neurological: Reports recent intermittent, brief episodes of dizziness upon lying down and turning over in bed. - Denies headaches or weakness. Physical exam (Primary Care) Vital Signs: Last Vital Signs Temp 97.7 F 10/18/25 13:25 Pulse 88 10/18/25 13:25 BP 167/77 H 10/18/25 13:34 Pulse Ox 97 10/18/25 13:25 Oxygen Delivery Method Room Air 10/18/25 13:25 BMI result Body Mass Index 33.3 Tobacco/Smoking Status: Tobacco use Status Tobacco use date assessed 08/12/25 10/18/25 13:32 Patient Tobacco Use Status Current everyday Tobacco 10/18/25 13:32 Tobacco use type Cigarette 10/18/25 13:32 e-Cigarette/Vaping Use Never Used 10/18/25 13:32 PHQ-9: PHQ-9 Score PHQ-9: Total score 0 10/18/25 13:35 Depression Screening Interpretation: Negative Thrive Assessment: Date of Thrive Assessment Date Thrive assessed 02/04/25 10/18/25 13:32 Currently or been in a relationship where the following occur: No concerns reported Narrative Physical Exam General: Appearance normal, both eyes and all related structures Nutritional Appearance: Well nourished Orientation/consciousness: Patient oriented x3 Limitations: No limitations Head: Normal to inspection Neck: Normal visual inspection Chest: Normal palpation of entire chest wall Respiratory: Normal respiratory effort Neurology: Patient oriented x3, reports occasional dizziness when turning over at night, but resolved with allergy medication. Coding Level of Care Code Est Pt Level 4 (94211) Add On Problem Visit Only Diagnoses Essential hypertension I10 Assessment & Plan Assessment & Plan (1) Essential hypertension: Code(s): I10 - Essential (primary) hypertension Category: Medical Plan Plan - Hypertension: The dose of lisinopril will be increased from 10 mg to 20 mg daily. - The patient will take two of her current 10 mg tablets until her supply is depleted, and a new prescription for 20 mg tablets will be sent. - The patient was advised to purchase a home blood pressure cuff and monitor her blood pressure at home. - Hyperlipidemia: Recommended lifestyle modifications including increased exercise, healthy eating, and increased vegetable intake. - Preventive Care: Instructed the patient to complete the Cologuard test. - Follow-up: The patient will keep her scheduled appointment in December. Discussion Notes I discussed with the patient that her blood pressure was elevated at today's visit. I recommended increasing her lisinopril dosage from 10 mg to 20 mg daily. I instructed her to use her remaining 10 mg tablets by taking two at a time and advised that a new prescription for 20 mg tablets would be called in. I also strongly encouraged her to purchase a home blood pressure monitor and check her blood pressure at home. We briefly reviewed her cholesterol, which is slightly high, and I advised lifestyle modifications including exercise and a healthy diet. I also reminded her to complete the Cologuard test. The patient will follow up as scheduled in December. Patient Instructions - Your blood pressure is high. - Please increase your lisinopril dose to 20 mg once a day. - You can do this by taking two of your current 10 mg pills each day until you run out. - We will send a new prescription for 20 mg pills to your pharmacy. - Please buy a blood pressure machine from a pharmacy like [facility] and start checking your blood pressure at home. - To help with your blood pressure and cholesterol, please get regular exercise and eat a healthy diet with plenty of vegetables. - Please complete the Cologuard test for colon cancer screening that you have at home. - Keep your next appointment that is scheduled for December. Medications: Changed From lisinopril 10 mg PO DAILY 90 tabs 1RF To lisinopril 20 mg PO DAILY 90 tabs 1RF
[2025-10-18 13:34] VITALS: BP 167/77
== END 2025-10-18 13:42 | disposition home or self-care (01) ==
LOC: HO.HMCSH 13:19
PROVIDERS: PCP Internal Medicine; Visit Provider Internal Medicine
DX: I10 Essential (primary) hypertension (principal)

== ENCOUNTER → 2025-10-18 13:19 | Outpatient (BNVA) | payer MEDICARE, BC, SELFPAY | PROVIDERS: PCP Internal Medicine; Visit Provider Internal Medicine | DX: I10 Essential (primary) hypertension (principal); E78.5 Hyperlipidemia, unspecified; Z79.899 Other long term (current) drug therapy; Z13.31 Encounter for screening for depression | CPT/HCPCS: 96127; 99212 ==